=== PATIENT | female | born 1960 | race African-American/Black ===

== ENCOUNTER 2017-12-18 09:08 | Emergency (ER) | payer OTHER ==
[~2017-12-18] VITALS: Ht 165.1 cm; Wt 104.3 kg
[2017-12-18 09:25] VITALS: BP 161/85
== END 2017-12-18 11:01 | disposition home or self-care (01) ==
LOC: EDBD 09:08 → ER 09:08
DX: B35.6 Tinea cruris (principal); E11.9 Type 2 diabetes mellitus without complications; I10 Essential (primary) hypertension; I25.2 Old myocardial infarction; Z86.73 Personal history of transient ischemic attack (TIA), and cerebral infarction without residual deficits
CPT/HCPCS: 81002; 82962